=== PATIENT | female | born 1945 | race Caucasian/White ===

== ENCOUNTER → 2025-04-18 | Outpatient (CLI) | payer MEDICARE, SELFPAY ==
[2025-04-18 13:47] LABS: CRYSTALS, BODY FLUID NO CRYSTALS SEEN; Color / Synovial Fluid Red (Pale Yellow); Source- Body Fluid SYNOVIAL; Viscosity / Synovial Fluid Liquid (HIGH)
[2025-04-18 13:48] LABS: Appearance /Synovial Fluid Cloudy (CLEAR)
[2025-04-18 14:41] LABS: Source / Synovial Fluid KNEE
[2025-04-18 14:45] LABS: Body Fluid QC Type(s) BF1,BF2
== END | disposition home or self-care (01) ==
LOC: LABSPEC 13:14
PROVIDERS: Referring Provider Orthopaedic Surgery; Visit Provider Orthopaedic Surgery
DX: M17.11 Unilateral primary osteoarthritis, right knee (principal)
CPT/HCPCS: 87070; 87075; 87077; 87186; 87205; 89051; 89060